=== PATIENT | male | born 1985 | race Caucasian/White ===

== ENCOUNTER 2018-04-04 07:34 | Emergency (ER) | payer OTHER ==
[~2018-04-04] VITALS: Ht 167.6 cm; Wt 90.7 kg
[~2018-04-04 07:34] MED LIST: CARAFATE1 GM PO; PROTONIX40 MG PO; ZOF4 PO
[2018-04-04 07:45] VITALS: Ht 167.6 cm; Wt 90.7 kg
[2018-04-04 09:45] VITALS: BP 141/75
== END 2018-04-04 09:45 | disposition home or self-care (01) ==
LOC: ED 07:34
DX: S09.90XA Unspecified injury of head, initial encounter (principal); K21.9 Gastro-esophageal reflux disease without esophagitis; X58.XXXA Exposure to other specified factors, initial encounter; Y93.89 Activity, other specified; Y92.89 Other specified places as the place of occurrence of the external cause; Y99.8 Other external cause status
CPT/HCPCS: J2060; J7030; Q0092